=== PATIENT | male | born 1995 | race Caucasian/White ===

== ENCOUNTER 2017-11-16 18:19 | Emergency (ER) | payer OTHER ==
[~2017-11-16] VITALS: Ht 182.9 cm; Wt 72.6 kg
[~2017-11-16 18:19] MED LIST: CRUTCH4 USE; DIVA250EC PO; DIVA500EC PO; IBUP400 PO; IBUP600 PO; INSLIS75I; LEVE500 PO; LORA.5 PO; PROM25 PO; RANI150 PO; RXLORA1 PO; RXONDA4ODT MM; Zofran4 MG PO; [UNRECOGNIZED DRUG - REMARK]; [UNRECOGNIZED DRUG - REMARK]
[2017-11-16] MEDS ORDERED: Norco 5-325 Ta1 EACH PO (19:19)
[2017-11-16] MEDS ORDERED: NAPR550 PO (19:19)
== END 2017-11-16 19:31 | disposition home or self-care (01) ==
LOC: ER 18:19
DX: M94.0 Chondrocostal junction syndrome [Tietze] (principal)
CPT/HCPCS: 71046; 93005; 93010; 96374; 99283; J1885

== ENCOUNTER 2017-12-14 23:11 | Emergency (ER) | payer OTHER ==
[~2017-12-14] VITALS: Ht 182.9 cm; Wt 75.8 kg
[~2017-12-14 23:11] MED LIST changes: +NAPR550 PO; +Norco 5-325 Ta1 EACH PO
[2017-12-15 00:30] LABS: BASOPHILS ABSOLUTE AUTO 0.04 K/mm3 (0.00-0.23); BASOPHILS PERCENT AUTO 0 % (0-2); EOSINOPHILS ABSOLUTE AUTO 0.05 K/mm3 (0.00-0.68); EOSINOPHILS PERCENT AUTO 1 % (0-6); Hematocrit 44.6 % (37.0-53.0); Hemoglobin 14.8 g/dL (13.5-17.5); IMMATURE GRAN ABSOLUTE AUTO 0.03 K/mm3 (0.00-0.10); IMMATURE GRAN PERCENT AUTO 0 % (0-1); LYMPHOCYTES ABSOLUTE AUTO 1.38 K/mm3 (0.84-5.20); LYMPHOCYTES PERCENT AUTO 15 % (21-46); MONOCYTES ABSOLUTE AUTO 0.92 K/mm3 (0.16-1.47); MONOCYTES PERCENT AUTO 10 % (4-13); Mean Corpuscular HGB 27.9 pg (26.0-34.0); Mean Corpuscular HGB Conc 33.2 g/dL (31.5-36.5); Mean Corpuscular Volume 84 fL (80-100); Mean Platelet Volume 10.5 fL (9.1-12.4); NEUTROPHILS ABSOLUTE AUTO 6.74 K/mm3 (1.96-9.15); NEUTROPHILS PERCENT AUTO 74 % (41-73); Platelet Count 193 K/mm3 (150-400); RDW Coefficient Variation 13.2 % (11.7-14.2); RDW Standard Deviation 40.1 fL (35.1-46.3); Red Blood Cell Count 5.31 M/mm3 (4.30-5.90); White Blood Cell Count 9.16 K/mm3 (4.00-11.30)
[2017-12-15 00:51] LABS: Alanine Aminotransfer (ALT/SGP 31 U/L (12-78); Albumin, Blood 3.8 g/dL (3.4-5.0); Albumin/Globulin Ratio 1.1 (0.8-1.8); Alk Phos 74 U/L (50-136); Anion Gap 9 mmol/L (6-16); Aspartate Aminotrans (AST/SGOT 16 U/L (12-37); Bilirubin, Total 0.4 mg/dL (0.1-1.0); Blood Urea Nitrogen 18 mg/dL (8-24); Bun/Creatinine Ratio 20.1 (12.0-20.0); CO2, Blood 25 mmol/L (21-32); Calcium, Blood 8.6 mg/dL (8.5-10.1); Chloride, Blood 105 mmol/L (98-108); Creatinine, Blood 0.89 mg/dL (0.60-1.20); Globulin, Blood 3.4 g/dL (2.2-4.0); Glomerular Filtration Rate >60 (60-); Glucose, Blood 112 mg/dL (70-99); Potassium, Blood 3.5 mmol/L (3.5-5.5); Sodium, Blood 139 mmol/L (136-145); Total Protein, Blood 7.2 g/dL (6.4-8.2); Troponin I <0.015 ng/mL (0.000-0.040)
[2017-12-15] MEDS ORDERED: Zofran Odt4 MG PO (01:03)
[2017-12-15] MEDS ORDERED: Naprosyn500 MG PO (01:03)
== END 2017-12-15 01:15 | disposition home or self-care (01) ==
LOC: ER 23:11
PROVIDERS: Emergency Medicine
DX: M94.0 Chondrocostal junction syndrome [Tietze] (principal); I95.1 Orthostatic hypotension; F17.220 Nicotine dependence, chewing tobacco, uncomplicated
CPT/HCPCS: 36415; 71046; 80053; 84484; 85025; 93005; 93010; 96374; 96375; 99284; J1885; J2405; J3010

== ENCOUNTER 2019-01-09 20:15 | Emergency (ER) | payer MEDICAID ==
[~2019-01-09] VITALS: Ht 182.9 cm; Wt 76.2 kg
[~2019-01-09 20:15] MED LIST changes: +Naprosyn500 MG PO; +Zofran Odt4 MG PO
[2019-01-09 20:50] LABS: BASOPHILS ABSOLUTE AUTO 0.03 K/mm3 (0.00-0.23); BASOPHILS PERCENT AUTO 0 % (0-2); EOSINOPHILS ABSOLUTE AUTO 0.15 K/mm3 (0.00-0.68); EOSINOPHILS PERCENT AUTO 2 % (0-6); Hematocrit 48.5 % (37.0-53.0); IMMATURE GRAN ABSOLUTE AUTO 0.02 K/mm3 (0.00-0.10); IMMATURE GRAN PERCENT AUTO 0 % (0-1); LYMPHOCYTES ABSOLUTE AUTO 1.69 K/mm3 (0.84-5.20); LYMPHOCYTES PERCENT AUTO 22 % (21-46); MONOCYTES ABSOLUTE AUTO 0.91 K/mm3 (0.16-1.47); MONOCYTES PERCENT AUTO 12 % (4-13); Mean Corpuscular HGB 29.6 pg (26.0-34.0); Mean Corpuscular Volume 90 fL (80-100); Mean Platelet Volume 10.1 fL (9.1-12.4); NEUTROPHILS ABSOLUTE AUTO 5.05 K/mm3 (1.96-9.15); NEUTROPHILS PERCENT AUTO 64 % (41-73); Platelet Count 179 K/mm3 (150-400); RDW Coefficient Variation 12.8 % (11.7-14.2); White Blood Cell Count 7.85 K/mm3 (4.00-11.30)
[2019-01-09 21:17] LABS: Alanine Aminotransfer (ALT/SGP 20 U/L (12-78); Albumin, Blood 3.6 g/dL (3.4-5.0); Albumin/Globulin Ratio 1.2 (0.8-1.8); Alk Phos 82 U/L (50-136); Anion Gap 6 mmol/L (6-16); Aspartate Aminotrans (AST/SGOT 20 U/L (12-37); Bilirubin, Total 0.4 mg/dL (0.1-1.0); Blood Urea Nitrogen 18 mg/dL (8-24); Bun/Creatinine Ratio 22.2 (12.0-20.0); CO2, Blood 26 mmol/L (21-32); Chloride, Blood 107 mmol/L (98-108); Creatinine, Blood 0.81 mg/dL (0.60-1.20); Glomerular Filtration Rate >60 (60-); Glucose, Blood 90 mg/dL (70-99); Potassium, Blood 3.7 mmol/L (3.5-5.5); Sodium, Blood 139 mmol/L (136-145); Total Protein, Blood 6.6 g/dL (6.4-8.2)
[2019-01-09 21:18] LABS: Source, Urine Clean Catch
[2019-01-09 21:20] LABS: Bilirubin, Urine Neg (Neg); Blood, Urine Neg (Neg); Glucose Qualitative, Urine Neg (Neg); Ketones, Urine Neg (Neg); Leukocyte Esterase, Urine Neg (Neg); Nitrite, Urine Neg (Neg); Protein, Urine Neg (Neg); Urobilinogen, Urine 1+ (Normal)
[2019-01-09 21:23] LABS: Appearance, Urine Clear (Clear); Color, Urine Yellow (P-Yellow)
[2019-01-10] MEDS ORDERED: ONDA4ODT MM (00:50)
== END 2019-01-10 01:12 | disposition home or self-care (01) ==
LOC: ER 20:15
PROVIDERS: Emergency Medicine
DX: K52.9 Noninfective gastroenteritis and colitis, unspecified (principal)
CPT/HCPCS: 36415; 74177; 80053; 81003; 83690; 85025; 96361; 96374-59; 99284-25; A9270-GY; J2405; J7030; Q9967

== ENCOUNTER 2019-02-09 23:29 | Emergency (ER) | payer OTHER ==
[~2019-02-09] VITALS: Ht 180.3 cm; Wt 72.6 kg
[~2019-02-09 23:29] MED LIST changes: +ONDA4ODT MM; +PRAZ1 PO
== END 2019-02-10 02:12 | disposition home or self-care (01) ==
LOC: ER 23:29
DX: S16.1XXA Strain of muscle, fascia and tendon at neck level, initial encounter (principal); V89.2XXA Person injured in unspecified motor-vehicle accident, traffic, initial encounter; Z79.899 Other long term (current) drug therapy; F17.220 Nicotine dependence, chewing tobacco, uncomplicated
CPT/HCPCS: 72125; 99284-25

== ENCOUNTER 2021-02-17 23:07 | Emergency (ER) | payer OTHER ==
[~2021-02-17] VITALS: Ht 172.7 cm; Wt 74.8 kg
== END 2021-02-18 00:40 | disposition home or self-care (01) ==
LOC: ER 23:07
DX: S00.03XA Contusion of scalp, initial encounter (principal); F17.220 Nicotine dependence, chewing tobacco, uncomplicated; Z79.899 Other long term (current) drug therapy
CPT/HCPCS: 70450; 72125; 96374; 99284-25; A9270; J3010

== ENCOUNTER 2021-05-14 15:43 | Emergency (ER) | payer BC, OTHER ==
[~2021-05-14] VITALS: Ht 182.9 cm; Wt 83.9 kg
[2021-05-14] MEDS ORDERED: SERT100 PO (16:06)
[2021-05-14] MEDS ORDERED: POTA10T PO (16:06)
[2021-05-14 16:19] LABS: BASOPHILS ABSOLUTE AUTO 0.02 K/mm3 (0.00-0.23); BASOPHILS PERCENT AUTO 0 % (0-2); EOSINOPHILS ABSOLUTE AUTO 0.08 K/mm3 (0.00-0.68); EOSINOPHILS PERCENT AUTO 2 % (0-6); Hematocrit 48.7 % (37.0-53.0); Hemoglobin 16.9 g/dL (13.5-17.5); IMMATURE GRAN PERCENT AUTO 0 % (0-1); LYMPHOCYTES ABSOLUTE AUTO 1.45 K/mm3 (0.84-5.20); LYMPHOCYTES PERCENT AUTO 30 % (21-46); MONOCYTES ABSOLUTE AUTO 0.49 K/mm3 (0.16-1.47); MONOCYTES PERCENT AUTO 10 % (4-13); Mean Corpuscular HGB 29.5 pg (26.0-34.0); Mean Corpuscular HGB Conc 34.7 g/dL (31.5-36.5); Mean Corpuscular Volume 85 fL (80-100); Mean Platelet Volume 11.4 fL (9.1-12.4); NEUTROPHILS ABSOLUTE AUTO 2.84 K/mm3 (1.96-9.15); NEUTROPHILS PERCENT AUTO 58 % (41-73); Platelet Count 197 K/mm3 (150-400); RDW Coefficient Variation 11.8 % (11.7-14.2); RDW Standard Deviation 36.2 fL (35.1-46.3); Red Blood Cell Count 5.72 M/mm3 (4.30-5.90); White Blood Cell Count 4.88 K/mm3 (4.00-11.30)
[2021-05-14 16:32] LABS: Anion Gap 6 mmol/L (6-16); Blood Urea Nitrogen 16 mg/dL (8-24); Bun/Creatinine Ratio 15.4 (12.0-20.0); CO2, Blood 26 mmol/L (21-32); Calcium, Blood 9.3 mg/dL (8.5-10.1); Chloride, Blood 106 mmol/L (98-108); Creatinine, Blood 1.04 mg/dL (0.60-1.20); Glomerular Filtration Rate >60 (60-); Glucose, Blood 89 mg/dL (70-99); Potassium, Blood 3.9 mmol/L (3.5-5.5); Sodium, Blood 138 mmol/L (136-145); Troponin I <0.015 ng/mL (0.000-0.040)
== END 2021-05-14 16:59 | disposition home or self-care (01) ==
LOC: ER 15:43
PROVIDERS: Student in an Organized Health Care Education/Training Program
DX: T50.3X1A Poisoning by electrolytic, caloric and water-balance agents, accidental (unintentional), initial encounter (principal)
CPT/HCPCS: 80048; 84484; 85025; 93005; 93010; 99284-25

== ENCOUNTER 2021-08-03 23:25 | Emergency (ER) | payer OTHER, BC ==
[~2021-08-03] VITALS: Ht 182.9 cm; Wt 86.2 kg
[~2021-08-03 23:25] MED LIST changes: +POTA10T PO; +SERT100 PO
== END 2021-08-04 05:31 | disposition home or self-care (01) ==
LOC: ER 23:25
DX: S83.92XA Sprain of unspecified site of left knee, initial encounter (principal); F17.220 Nicotine dependence, chewing tobacco, uncomplicated; X50.1XXA Overexertion from prolonged static or awkward postures, initial encounter
CPT/HCPCS: 73562-LT; 99283-25; A9270

== ENCOUNTER 2021-11-09 01:25 | Emergency (ER) | payer BC, OTHER ==
[~2021-11-09] VITALS: Ht 182.9 cm; Wt 90.7 kg
[2021-11-09 02:03] LABS: Alanine Aminotransfer (ALT/SGP 34 U/L (12-78); Albumin/Globulin Ratio 1.1 (0.8-1.8); Alk Phos 85 U/L (50-136); Anion Gap 7 mmol/L (6-16); Aspartate Aminotrans (AST/SGOT 19 U/L (12-37); Bilirubin, Total 0.5 mg/dL (0.1-1.0); Blood Urea Nitrogen 17 mg/dL (8-24); Bun/Creatinine Ratio 17.3 (12.0-20.0); CO2, Blood 27 mmol/L (21-32); Calcium, Blood 8.8 mg/dL (8.5-10.1); Chloride, Blood 105 mmol/L (98-108); Creatinine, Blood 0.98 mg/dL (0.60-1.20); Globulin, Blood 3.6 g/dL (2.2-4.0); Glomerular Filtration Rate >60 (60-); Glucose, Blood 105 mg/dL (70-99); Potassium, Blood 3.3 mmol/L (3.5-5.5); Sodium, Blood 139 mmol/L (136-145); Total Protein, Blood 7.6 g/dL (6.4-8.2)
[2021-11-09 02:14] LABS: BASOPHILS ABSOLUTE AUTO 0.04 K/mm3 (0.00-0.23); BASOPHILS PERCENT AUTO 0 % (0-2); EOSINOPHILS ABSOLUTE AUTO 0.19 K/mm3 (0.00-0.68); EOSINOPHILS PERCENT AUTO 2 % (0-6); Hematocrit 49.3 % (37.0-53.0); Hemoglobin 16.5 g/dL (13.5-17.5); IMMATURE GRAN ABSOLUTE AUTO 0.03 K/mm3 (0.00-0.10); IMMATURE GRAN PERCENT AUTO 0 % (0-1); LYMPHOCYTES ABSOLUTE AUTO 3.25 K/mm3 (0.84-5.20); LYMPHOCYTES PERCENT AUTO 35 % (21-46); MONOCYTES ABSOLUTE AUTO 0.79 K/mm3 (0.16-1.47); MONOCYTES PERCENT AUTO 9 % (4-13); Mean Corpuscular HGB 28.9 pg (26.0-34.0); Mean Corpuscular HGB Conc 33.5 g/dL (31.5-36.5); Mean Corpuscular Volume 87 fL (80-100); Mean Platelet Volume 10.9 fL (9.1-12.4); NEUTROPHILS ABSOLUTE AUTO 4.96 K/mm3 (1.96-9.15); NEUTROPHILS PERCENT AUTO 54 % (41-73); Platelet Count 315 K/mm3 (150-400); RDW Coefficient Variation 12.1 % (11.7-14.2); RDW Standard Deviation 38.5 fL (35.1-46.3); White Blood Cell Count 9.26 K/mm3 (4.00-11.30)
[2021-11-09 03:44] LABS: Influenza B, PCR NEGATIVE (NEGATIVE); Resp Syncytial Virus, PCR NEGATIVE (NEGATIVE); SARS-Cov-2 (COVID-19) PCR, MMC NEGATIVE (NEGATIVE)
[2021-11-09 03:54] LABS: Influenza A, PCR POSITIVE (NEGATIVE)
== END 2021-11-09 04:15 | disposition home or self-care (01) ==
LOC: ER 01:25
PROVIDERS: Emergency Medicine
DX: J10.1 Influenza due to other identified influenza virus with other respiratory manifestations (principal); F17.220 Nicotine dependence, chewing tobacco, uncomplicated; Z20.822 Contact with and (suspected) exposure to COVID-19
CPT/HCPCS: 0241U; 71045; 80053; 84484; 85025; 93005; 93010

== ENCOUNTER → 2022-03-07 | Outpatient (CLI) | payer BC | LOC: LAB SHORT 12:25 → LAB 12:25 | DX: J02.9 Acute pharyngitis, unspecified (principal) | CPT/HCPCS: 87081 ==

== ENCOUNTER → 2023-03-12 | Outpatient (CLI) | payer OTHER ==
[~2023-03-12] MED LIST changes: +EPIPEN0.3 MG/0.3 IM
[2023-03-12 13:28] LABS: Source, Urine Voided
[2023-03-12 15:47] LABS: Appearance, Urine Clear (Clear); Bilirubin, Urine Neg (Neg); Blood, Urine 1+ (Neg); Color, Urine Yellow (P-Yellow); Glucose Qualitative, Urine Neg (Neg); Ketones, Urine Neg (Neg); Leukocyte Esterase, Urine Neg (Neg); Nitrite, Urine Neg (Neg); Protein, Urine Neg (Neg); Urobilinogen, Urine NORM (Normal)
[2023-03-12 15:57] LABS: Bacteria Few /hpf; Squamous Epithelial Cells Rare /hpf (Few); White Blood Cells, Urine 0-2 /hpf (0-5)
== END | disposition home or self-care (01) ==
LOC: LAB 10:30 → LAB SHORT 10:30
PROVIDERS: Physician Assistant
DX: R10.9 Unspecified abdominal pain (principal); R31.29 Other microscopic hematuria
CPT/HCPCS: 81001

== ENCOUNTER 2023-07-10 01:48 | Emergency (ER) | payer OTHER ==
[~2023-07-10] VITALS: Ht 182.9 cm; Wt 83.9 kg
[2023-07-10] MEDS ORDERED: Cyclobenzaprine5 MG PO (02:00)
[2023-07-10 02:21] LABS: BASOPHILS ABSOLUTE AUTO 0.05 K/mm3 (0.00-0.23); BASOPHILS PERCENT AUTO 1 % (0-2); EOSINOPHILS ABSOLUTE AUTO 0.19 K/mm3 (0.00-0.68); EOSINOPHILS PERCENT AUTO 2 % (0-6); Hematocrit 47.3 % (37.0-53.0); Hemoglobin 16.4 g/dL (13.5-17.5); IMMATURE GRAN ABSOLUTE AUTO 0.03 K/mm3 (0.00-0.10); IMMATURE GRAN PERCENT AUTO 0 % (0-1); LYMPHOCYTES ABSOLUTE AUTO 3.48 K/mm3 (0.84-5.20); LYMPHOCYTES PERCENT AUTO 42 % (21-46); MONOCYTES PERCENT AUTO 8 % (4-13); Mean Corpuscular HGB 29.2 pg (26.0-34.0); Mean Corpuscular HGB Conc 34.7 g/dL (31.5-36.5); Mean Corpuscular Volume 84 fL (80-100); Mean Platelet Volume 10.8 fL (9.1-12.4); NEUTROPHILS ABSOLUTE AUTO 3.94 K/mm3 (1.96-9.15); NEUTROPHILS PERCENT AUTO 47 % (41-73); Platelet Count 227 K/mm3 (150-400); RDW Coefficient Variation 12.2 % (11.7-14.2); RDW Standard Deviation 37.1 fL (35.1-46.3); Red Blood Cell Count 5.62 M/mm3 (4.30-5.90); White Blood Cell Count 8.39 K/mm3 (4.00-11.30)
[2023-07-10 02:33] LABS: Albumin, Blood 4.2 g/dL (3.4-5.0); Albumin/Globulin Ratio 1.3 (0.8-1.8); Bilirubin, Total 0.4 mg/dL (0.1-1.0); Bun/Creatinine Ratio 17.5 (12.0-20.0); Creatinine, Blood 1.03 mg/dL (0.60-1.20); Globulin, Blood 3.2 g/dL (2.2-4.0); Total Protein, Blood 7.4 g/dL (6.4-8.2)
[2023-07-10 03:29] LABS: U Amphetamine Screen Not Detected; U Barbituate Screen Not Detected; U Benzodiazapine Screen Not Detected; U Buprenorphine Screen Not Detected; U Cannabinoids Screen Not Detected; U Cocaine Screen Not Detected; U Methadone Screen Not Detected; U Methamphetamine Screen Not Detected; U Opiates Screen Not Detected; U Oxycodone Screen Not Detected; U Phencyclidine Screen Not Detected; U Propoxyphene Screen Not Detected
[2023-07-10] MEDS ORDERED: MIDAZOLAM H (06:34)
[2023-07-10 08:11] VITALS: BP 116/71
== END 2023-07-10 08:13 | disposition home or self-care (01) ==
LOC: ER 01:48
PROVIDERS: Emergency Medicine
DX: T50.901A Poisoning by unspecified drugs, medicaments and biological substances, accidental (unintentional), initial encounter (principal); E86.0 Dehydration; G40.909 Epilepsy, unspecified, not intractable, without status epilepticus; Z91.030 Bee allergy status; Z79.899 Other long term (current) drug therapy; F17.220 Nicotine dependence, chewing tobacco, uncomplicated
CPT/HCPCS: 80053; 85025; 93005; 93010; 96365; 96366; 96375; 96376; 99284-25; A9270; J1953; J2060; J2405; J3480; J7120

== ENCOUNTER 2023-11-03 00:58 | Emergency (ER) | payer OTHER ==
[~2023-11-03] VITALS: Ht 188 cm; Wt 99.8 kg
[~2023-11-03 00:58] MED LIST changes: +Cyclobenzaprine5 MG PO; +MIDAZOLAM H
[2023-11-03 01:16] LABS: BASOPHILS ABSOLUTE AUTO 0.04 K/mm3 (0.00-0.23); BASOPHILS PERCENT AUTO 1 % (0-2); EOSINOPHILS PERCENT AUTO 3 % (0-6); Hematocrit 45.5 % (37.0-53.0); Hemoglobin 15.8 g/dL (13.5-17.5); IMMATURE GRAN ABSOLUTE AUTO 0.01 K/mm3 (0.00-0.10); IMMATURE GRAN PERCENT AUTO 0 % (0-1); LYMPHOCYTES ABSOLUTE AUTO 2.75 K/mm3 (0.84-5.20); LYMPHOCYTES PERCENT AUTO 44 % (21-46); MONOCYTES ABSOLUTE AUTO 0.52 K/mm3 (0.16-1.47); MONOCYTES PERCENT AUTO 8 % (4-13); Mean Corpuscular HGB 29.8 pg (26.0-34.0); Mean Corpuscular HGB Conc 34.7 g/dL (31.5-36.5); Mean Corpuscular Volume 86 fL (80-100); Mean Platelet Volume 10.1 fL (9.1-12.4); NEUTROPHILS ABSOLUTE AUTO 2.68 K/mm3 (1.96-9.15); NEUTROPHILS PERCENT AUTO 43 % (41-73); Platelet Count 225 K/mm3 (150-400); RDW Coefficient Variation 12.3 % (11.7-14.2); RDW Standard Deviation 38.4 fL (35.1-46.3); Red Blood Cell Count 5.31 M/mm3 (4.30-5.90)
[2023-11-03 01:24] LABS: Base Excess Venous -0.8 mmol/L; Bicarbonate Venous 23.8 mmol/L (24.0-30.0); PCO2 Venous 23.8 mmHg (38-42); pH Blood Venous 7.39 (7.34-7.37)
[2023-11-03 01:44] LABS: Albumin, Blood 3.8 g/dL (3.4-5.0); Albumin/Globulin Ratio 1.2 (0.8-1.8); Beta-hydroxybutyrate 0.9 mg/dL (0.2-2.8); Bilirubin, Total 0.5 mg/dL (0.1-1.0); Bun/Creatinine Ratio 24.9 (12.0-20.0); Calcium, Blood 8.7 mg/dL (8.5-10.1); Creatinine, Blood 0.96 mg/dL (0.60-1.20); Globulin, Blood 3.1 g/dL (2.2-4.0); Potassium, Blood 3.8 mmol/L (3.5-5.5); Total Protein, Blood 6.9 g/dL (6.4-8.2)
[2023-11-03 02:19] VITALS: BP 120/79
== END 2023-11-03 02:14 | disposition home or self-care (01) ==
LOC: ER 00:58
PROVIDERS: Emergency Medicine
DX: Z00.00 Encounter for general adult medical examination without abnormal findings (principal); F17.220 Nicotine dependence, chewing tobacco, uncomplicated; I25.2 Old myocardial infarction; Z79.899 Other long term (current) drug therapy; Z91.030 Bee allergy status
CPT/HCPCS: 71045; 80053; 82010; 82803; 82947; 84484; 85025; 93005; 93010; 99285-25

== ENCOUNTER 2024-04-04 23:32 | Emergency (ER) | payer OTHER ==
[~2024-04-04] VITALS: Ht 188 cm; Wt 95.2 kg
[2024-04-05 00:30] VITALS: BP 114/74
[2024-04-05] MEDS ORDERED: EPINEPHRIN0.3 MG/0.1 (01:53)
[2024-04-05] MEDS ORDERED: Ventolin5 MG/1 ML (01:53)
[2024-04-05] MEDS ORDERED: EPIPEN0.3 MG/0.3 IM (02:02)
[2024-04-05] MEDS ORDERED: Diphth,Pertuss(Acell),Tet Vac 0.5 ML VIAL IM ONE (02:05)
== END 2024-04-05 02:23 | disposition home or self-care (01) ==
LOC: ER 23:32
DX: T63.441A Toxic effect of venom of bees, accidental (unintentional), initial encounter (principal); T78.2XXA Anaphylactic shock, unspecified, initial encounter; Z91.030 Bee allergy status; Z79.899 Other long term (current) drug therapy; I25.2 Old myocardial infarction; F17.220 Nicotine dependence, chewing tobacco, uncomplicated
CPT/HCPCS: 90471; 90715; 99285-25

== ENCOUNTER 2024-08-07 11:51 | Observation (INO) | payer BC, OTHER ==
[~2024-08-07] VITALS: Ht 182.9 cm; Wt 92.1 kg
[~2024-08-07 11:51] MED LIST changes: +EPINEPHRIN0.3 MG/0.1; +Ventolin5 MG/1 ML
[2024-08-07 12:27] LABS: BASOPHILS ABSOLUTE AUTO 0.03 K/mm3 (0.00-0.23); BASOPHILS PERCENT AUTO 1 % (0-2); EOSINOPHILS ABSOLUTE AUTO 0.08 K/mm3 (0.00-0.68); EOSINOPHILS PERCENT AUTO 1 % (0-6); Hematocrit 48.3 % (37.0-53.0); Hemoglobin 16.6 g/dL (13.5-17.5); IMMATURE GRAN ABSOLUTE AUTO 0.01 K/mm3 (0.00-0.10); IMMATURE GRAN PERCENT AUTO 0 % (0-1); LYMPHOCYTES ABSOLUTE AUTO 1.02 K/mm3 (0.84-5.20); LYMPHOCYTES PERCENT AUTO 17 % (21-46); MONOCYTES PERCENT AUTO 8 % (4-13); Mean Corpuscular HGB 29.9 pg (26.0-34.0); Mean Corpuscular HGB Conc 34.4 g/dL (31.5-36.5); Mean Corpuscular Volume 87 fL (80-100); Mean Platelet Volume 10.8 fL (9.1-12.4); NEUTROPHILS ABSOLUTE AUTO 4.48 K/mm3 (1.96-9.15); NEUTROPHILS PERCENT AUTO 73 % (41-73); Platelet Count 198 K/mm3 (150-400); RDW Coefficient Variation 12.4 % (11.7-14.2); RDW Standard Deviation 39.8 fL (35.1-46.3); Red Blood Cell Count 5.56 M/mm3 (4.30-5.90); White Blood Cell Count 6.12 K/mm3 (4.00-11.30)
[2024-08-07 12:46] LABS: Ethanol (Alcohol), Blood, Med <3 mg/dL; Salicylate <1.7 mg/dL (2.8-20.0)
[2024-08-07 12:53] LABS: Acetaminophen, Random <2.0 ug/mL (10.0-30.0); Alanine Aminotransfer (ALT/SGP 27 U/L (12-78); Albumin, Blood 4.2 g/dL (3.4-5.0); Albumin/Globulin Ratio 1.4 (0.8-1.8); Alk Phos 78 U/L (50-136); Anion Gap 10 mmol/L (3-11); Aspartate Aminotrans (AST/SGOT 19 U/L (12-37); Bilirubin, Total 0.7 mg/dL (0.1-1.0); Blood Urea Nitrogen 19 mg/dL (8-24); Bun/Creatinine Ratio 19.6 (12.0-20.0); CO2, Blood 27 mmol/L (21-32); Calcium, Blood 8.9 mg/dL (8.5-10.1); Chloride, Blood 108 mmol/L (98-108); Creatinine, Blood 0.97 mg/dL (0.60-1.20); Globulin, Blood 3.1 g/dL (2.2-4.0); Glomerular Filtration Rate 110 (60-); Glucose, Blood 104 mg/dL (70-99); Potassium, Blood 3.8 mmol/L (3.5-5.5); Sodium, Blood 141 mmol/L (136-145); Total Protein, Blood 7.3 g/dL (6.4-8.2)
[2024-08-07] MEDS ORDERED: Ondansetron 4 MG SoluTab SL ONE (12:55)
[2024-08-07 13:07] LABS: U Amphetamine Screen Not Detected; U Barbituate Screen Not Detected; U Benzodiazapine Screen Not Detected; U Buprenorphine Screen Not Detected; U Cannabinoids Screen Not Detected; U Cocaine Screen Not Detected; U Methadone Screen Not Detected; U Methamphetamine Screen Not Detected; U Opiates Screen Not Detected; U Oxycodone Screen Not Detected; U Phencyclidine Screen Not Detected
[2024-08-08 11:11] VITALS: BP 110/62
== END 2024-08-08 14:30 | disposition other institution (70) ==
LOC: ER 11:51 → EOR 11:52
PROVIDERS: ADMIT Emergency Medicine
DX: T48.1X2A Poisoning by skeletal muscle relaxants [neuromuscular blocking agents], intentional self-harm, initial encounter (principal); I25.2 Old myocardial infarction; Z72.0 Tobacco use; Z88.8 Allergy status to other drugs, medicaments and biological substances; Z91.030 Bee allergy status; Z91.038 Other insect allergy status
CPT/HCPCS: 80053; 80320; 85025; 93005; 93010; 99285-25; A9270; G0378; G0480

== ENCOUNTER 2024-08-08 13:34 | Inpatient (IN) | payer BC, OTHER ==
[~2024-08-08] VITALS: Ht 185.4 cm; Wt 92.0 kg
[2024-08-08] MEDS ORDERED: OLANZapine ODT 5 MG Tab MM PRN (14:40)
[2024-08-08] MEDS ORDERED: LORazepam 2 MG Tab PO PRN (14:40)
[2024-08-08] MEDS ORDERED: HydrOXYzine Pamoate 50 MG Cap PO PRN (14:40)
[2024-08-08] MEDS ORDERED: Haloperidol 5 MG Tab PO PRN (14:40)
[2024-08-08] MEDS ORDERED: TraZODone HCl 50 MG Tab PO PRN (14:40)
[2024-08-08] MEDS ORDERED: FLU VACC TS2024-25(6MOS UP)/PF 45 MCG/0.5 ML SYRINGE IM SCH (14:40)
[2024-08-08 14:45] VITALS: BP 121/82
[2024-08-08] MEDS ORDERED: EpiNEPhrine 1 MG/1 ML 1ML Vial IM PRN (14:45)
[2024-08-08] MEDS ORDERED: Albuterol 2.5 MG/3 ML VIAL INH PRN (14:50)
[2024-08-08 15:01] VITALS: BP 121/82
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
[2024-08-08 19:01] VITALS: BP 120/77
--- NOTE | 2024-08-09 05:09 | NUR ---
PATIENT WAS IN GROUP ROOM WITH PEERS AND STAFF AT THE BEGINNING OF THE SHIFT, WATCHING A MOVIE ON THE TELEVISION. HE WAS PLEASANT AND COOPERATIVE WITH CARES. HE JOINED THE OTHERS IN THE DINING ROOM FOR SNACK TIME. HE REQUESTED AND WAS GIVEN TRAZODONE FOR INSOMNIA, AND WENT TO HIS ROOM, WHERE HE WENT TO BED AND WAS NOTED TO BE RESTING QUIETLY WITH EYES CLOSED AND RESPIRATIONS CONFIRMED FOR THE REMAINDER OF THE SHIFT. HE HAD NO S/SX SUICIDAL IDEATION OR SELF HARM. CONTINUING TO MONITOR WITH Q15 MINUTE SAFETY CHECKS
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
[2024-08-09] MEDS ORDERED: BusPIRone HCl 5 MG Tab PO SCH (21:00)
[2024-08-09 22:02] VITALS: BP 106/71
--- NOTE | 2024-08-10 03:44 | NUR ---
PATIENT WAS IN THE [facility] AT THE BEGINNING OF THE SHIFT, INTERACTING WITH STAFF AND PEERS APPROPRIATELY. HE WAS PLEASANT AND COOPERATIVE WITH CARES. HE WAS COMPLIANT WITH EVENING MEDICATIONS AND STATED THAT HE FELT BUSPAR "IS A GOOD MEDICATION FOR ME. i CAN FEEL IT LESSENING THE ANXIETY WITHOUT GIVING ME WEIRD FEELINGS." HE JOINED THE [facility] FOR SNACK TIME IN THE DINING AREA. SHORTLY AFTER, HE WENT TO HIS ROOM AND WAS NOTED TO BE IN BED RESTING QUIETLY WITH EYES CLOSED AND RESPIRATIONS CONFIRMED. HE HAD NO S/SX SUICIDAL IDEATION OR SELF HARM THIS SHIFT. CONTINUING TO MONITOR WITH Q15 MINUTE SAFETY CHECKS.
[2024-08-10] MEDS ORDERED: Nicotine Polacrilex 2 MG Gum PO PRN (17:45)
--- NOTE | 2024-08-10 18:12 | NUR ---
SHIFT SUMMARY PT A/O X4; PLEASANT AND COOPERATIVE WITH CARE. HE DENIES SI, HI, OR ANY HALLUCINATIONS. HE IS TOLERATING MEDICATIONS AND OVERALL SEEMS TO BE DOING WELL. HE IS HOPEFUL TO DISCHARGE TOMORROW AND FEELS THAT HE IS READY. HE REPORTS THAT HE CURRENTLY HAS A THERAPIST AND GOES TO THERAPY EVERY SUNDAY AND SUNDAY. EDUCATED PT ON HOLD PROCESS AND HE EXPRESSED UNDERSTANDING. HE PARTICIPATES IN ALL [facility] ACTIVITIES AND IS MONITORED VIA Q15 CHECKS PER UNIT PROTOCOL.
[2024-08-10 18:48] VITALS: BP 108/54
[2024-08-10 19:51] VITALS: BP 125/86
--- NOTE | 2024-08-11 04:29 | NUR ---
PATIENT WAS IN THE GROUP ROOM WITH STAFF AND PEERS AT THE BEGINNING OF THE SHIFT, WATCHING A MOVIE. HE WAS PLEASANT AND COOPERATIVE WITH CARES. HE WAS ABLE TO MAKE NEEDS KNOWN. HE TALKED WITH STAFF AND SHOWED INSIGHT INTO HIS ILLNESS. HE HAS PLANS AND GOALS FOR THE FUTURE. HE WAS COMPLIANT WITH EVENING MEDICATIONS. HE WENT TO THE DINING ROOM WITH STAFF AND PEERS FOR A SNACK, AND THEN CAME BACK TO THE GROUP ROOM TO FINISH THE MOVIE. HE THEN TALKED WITH STAFF FOR A TIME. HE WENT TO BED AFTER TALKING WITH [employer] STAFF FOR SOME TIME. HE WAS NOTED TO BE RESTING QUIETLY WITH EYES CLOSED AND RESPIRATIONS CONFIRMED THROUGHOUT THE REMAINDER OF THE SHIFT. HE HAD NO S/SX SUICIDAL IDEATION OR SELF HARM. CONTINUING TO MONITOR WITH Q15 MINUTE SAFETY CHECKS.
[2024-08-11 08:45] VITALS: BP 119/79
[2024-08-11] MEDS ORDERED: BUSP5 PO (11:23)
--- NOTE | 2024-08-11 12:21 | NUR ---
DISCHARGE NOTE PT A/O X4; PLEASANT AND COOPERATIVE WITH CARE. PT DENIES SI, HI, OR ANY HALLUCINATIONS. PT MET WITH [employer] AND SAFETY PLAN COMPLETED. FOLLOW UP APPOINTMENT SCHEDULED AND DISCHARGE PAPER WORK REVIEWED WITH PATIENT. NEW MEDICATIONS FAXED TO [facility]. BELONGINGS RETURNED TO PATIENT AND HE DISCHARGED HOME WITH HIS .
== END 2024-08-11 12:25 | disposition home or self-care (01) | DRG 882 ==
LOC: BHU 13:34
PROVIDERS: ADMIT Psychiatry & Neurology Psychiatry
DX: F43.25 Adjustment disorder with mixed disturbance of emotions and conduct (principal); T48.1X2A Poisoning by skeletal muscle relaxants [neuromuscular blocking agents], intentional self-harm, initial encounter; F17.220 Nicotine dependence, chewing tobacco, uncomplicated; G40.909 Epilepsy, unspecified, not intractable, without status epilepticus; Z88.8 Allergy status to other drugs, medicaments and biological substances; Z91.030 Bee allergy status; Z91.038 Other insect allergy status; Z95.5 Presence of coronary angioplasty implant and graft; I25.2 Old myocardial infarction
CPT/HCPCS: A9270; J0171

== ENCOUNTER → 2024-08-13 | Outpatient (CLI) | payer BC, OTHER ==
[~2024-08-13] MED LIST changes: +BUSP5 PO
[2024-08-13 14:22] LABS: BASOPHILS ABSOLUTE AUTO 0.02 K/mm3 (0.00-0.23); BASOPHILS PERCENT AUTO 0 % (0-2); EOSINOPHILS ABSOLUTE AUTO 0.17 K/mm3 (0.00-0.68); EOSINOPHILS PERCENT AUTO 3 % (0-6); Hematocrit 50.2 % (37.0-53.0); Hemoglobin 17.3 g/dL (13.5-17.5); IMMATURE GRAN ABSOLUTE AUTO 0.01 K/mm3 (0.00-0.10); IMMATURE GRAN PERCENT AUTO 0 % (0-1); LYMPHOCYTES PERCENT AUTO 29 % (21-46); MONOCYTES ABSOLUTE AUTO 0.44 K/mm3 (0.16-1.47); MONOCYTES PERCENT AUTO 8 % (4-13); Mean Corpuscular HGB 29.7 pg (26.0-34.0); Mean Corpuscular HGB Conc 34.5 g/dL (31.5-36.5); Mean Corpuscular Volume 86 fL (80-100); Mean Platelet Volume 11.5 fL (9.1-12.4); NEUTROPHILS PERCENT AUTO 59 % (41-73); Platelet Count 200 K/mm3 (150-400); RDW Coefficient Variation 12.3 % (11.7-14.2); RDW Standard Deviation 38.5 fL (35.1-46.3); Red Blood Cell Count 5.82 M/mm3 (4.30-5.90); White Blood Cell Count 5.24 K/mm3 (4.00-11.30)
[2024-08-13 14:46] LABS: Alanine Aminotransfer (ALT/SGP 24 U/L (12-78); Albumin, Blood 4.2 g/dL (3.4-5.0); Albumin/Globulin Ratio 1.3 (0.8-1.8); Alk Phos 83 U/L (50-136); Anion Gap 11 mmol/L (3-11); Aspartate Aminotrans (AST/SGOT 14 U/L (12-37); Blood Urea Nitrogen 16 mg/dL (8-24); Bun/Creatinine Ratio 15.1 (12.0-20.0); CHOL/HDL RATIO 2.5; CO2, Blood 25 mmol/L (21-32); Chloride, Blood 110 mmol/L (98-108); Cholesterol 144 mg/dL (50-200); Creatinine, Blood 1.06 mg/dL (0.60-1.20); Globulin, Blood 3.3 g/dL (2.2-4.0); Glomerular Filtration Rate 99 (60-); Glucose, Blood 92 mg/dL (70-99); HDL Cholesterol 57 mg/dL (>39); LDL/HDL RATIO 1.2; Low Density Lipoprotein Chol 70 mg/dL (0-110); Potassium, Blood 3.9 mmol/L (3.5-5.5); Sodium, Blood 142 mmol/L (136-145); Total Protein, Blood 7.5 g/dL (6.4-8.2); Triglycerides 86 mg/dL (30-140); Very Low Density Lipoprot Chol 17 mg/dL (6-28)
[2024-08-15 09:53] LABS: HIV 1,2 COMBO ANTIGEN/ANTIBODY Negative (Negative)
[2024-08-15 15:56] LABS: HEPATITIS C AB CIA INTERP Negative (Negative); HEPATITIS C ANTIBODY CIA INDEX 0.13 IV
== END ==
LOC: LAB 12:59 → LAB SHORT 12:59
PROVIDERS: Family Medicine
DX: Z11.59 Encounter for screening for other viral diseases (principal); Z11.4 Encounter for screening for human immunodeficiency virus [HIV]; Z13.6 Encounter for screening for cardiovascular disorders; R45.89 Other symptoms and signs involving emotional state; Z91.51 Personal history of suicidal behavior
CPT/HCPCS: 80053; 80061; 84443; 85025; 86803; 87389

== ENCOUNTER 2024-08-31 19:36 | Emergency (ER) | payer BC, OTHER ==
[~2024-08-31] VITALS: Ht 185.4 cm; Wt 90.7 kg
[2024-08-31 20:04] LABS: BASOPHILS ABSOLUTE AUTO 0.04 K/mm3 (0.00-0.23); BASOPHILS PERCENT AUTO 0 % (0-2); EOSINOPHILS ABSOLUTE AUTO 0.05 K/mm3 (0.00-0.68); EOSINOPHILS PERCENT AUTO 1 % (0-6); Hematocrit 50.1 % (37.0-53.0); Hemoglobin 17.1 g/dL (13.5-17.5); IMMATURE GRAN ABSOLUTE AUTO 0.02 K/mm3 (0.00-0.10); IMMATURE GRAN PERCENT AUTO 0 % (0-1); LYMPHOCYTES ABSOLUTE AUTO 1.47 K/mm3 (0.84-5.20); LYMPHOCYTES PERCENT AUTO 16 % (21-46); MONOCYTES ABSOLUTE AUTO 0.62 K/mm3 (0.16-1.47); MONOCYTES PERCENT AUTO 7 % (4-13); Mean Corpuscular HGB 29.4 pg (26.0-34.0); Mean Corpuscular HGB Conc 34.1 g/dL (31.5-36.5); Mean Corpuscular Volume 86 fL (80-100); Mean Platelet Volume 10.6 fL (9.1-12.4); NEUTROPHILS ABSOLUTE AUTO 7.27 K/mm3 (1.96-9.15); NEUTROPHILS PERCENT AUTO 77 % (41-73); Platelet Count 244 K/mm3 (150-400); RDW Coefficient Variation 12.6 % (11.7-14.2); RDW Standard Deviation 39.6 fL (35.1-46.3); Red Blood Cell Count 5.82 M/mm3 (4.30-5.90); White Blood Cell Count 9.47 K/mm3 (4.00-11.30)
[2024-08-31 20:20] LABS: Albumin, Blood 4.3 g/dL (3.4-5.0); Albumin/Globulin Ratio 1.3 (0.8-1.8); Bilirubin, Total 0.7 mg/dL (0.1-1.0); Bun/Creatinine Ratio 15.5 (12.0-20.0); Calcium, Blood 9.2 mg/dL (8.5-10.1); Creatinine, Blood 1.03 mg/dL (0.60-1.20); Globulin, Blood 3.3 g/dL (2.2-4.0); Potassium, Blood 3.8 mmol/L (3.5-5.5); Total Protein, Blood 7.6 g/dL (6.4-8.2)
[2024-08-31 20:31] VITALS: BP 132/97
== END 2024-08-31 21:00 | disposition home or self-care (01) ==
LOC: ER 19:36
PROVIDERS: Emergency Medicine
DX: R07.89 Other chest pain (principal); R00.2 Palpitations; G47.00 Insomnia, unspecified; R00.0 Tachycardia, unspecified; F17.220 Nicotine dependence, chewing tobacco, uncomplicated; Z91.030 Bee allergy status; Z88.8 Allergy status to other drugs, medicaments and biological substances; F43.10 Post-traumatic stress disorder, unspecified
CPT/HCPCS: 71045; 80053; 84484; 85025; 93005; 93010; 99285-25

== ENCOUNTER 2025-08-03 00:06 | Emergency (ER) | payer BC ==
[~2025-08-03] VITALS: Ht 185.4 cm; Wt 99.8 kg
[2025-08-03 00:29] LABS: BASOPHILS ABSOLUTE AUTO 0.03 K/mm3 (0.00-0.23); BASOPHILS PERCENT AUTO 0 % (0-2); EOSINOPHILS ABSOLUTE AUTO 0.19 K/mm3 (0.00-0.68); EOSINOPHILS PERCENT AUTO 2 % (0-6); Hematocrit 46.8 % (37.0-53.0); Hemoglobin 16.2 g/dL (13.5-17.5); IMMATURE GRAN ABSOLUTE AUTO 0.02 K/mm3 (0.00-0.10); IMMATURE GRAN PERCENT AUTO 0 % (0-1); LYMPHOCYTES ABSOLUTE AUTO 3.23 K/mm3 (0.84-5.20); LYMPHOCYTES PERCENT AUTO 34 % (21-46); MONOCYTES ABSOLUTE AUTO 0.78 K/mm3 (0.16-1.47); MONOCYTES PERCENT AUTO 8 % (4-13); Mean Corpuscular HGB Conc 34.6 g/dL (31.5-36.5); Mean Corpuscular Volume 87 fL (80-100); NEUTROPHILS ABSOLUTE AUTO 5.15 K/mm3 (1.96-9.15); NEUTROPHILS PERCENT AUTO 55 % (41-73); NRBC ABSOLUTE 0.00 K/mm3 (0.00-0.02); NRBC Auto 0.0 /100 WBC (0.0-0.2); Platelet Count 229 K/mm3 (150-400); RDW Coefficient Variation 12.3 % (11.7-14.2); RDW Standard Deviation 38.9 fL (35.1-46.3)
[2025-08-03 00:49] LABS: Ethanol (Alcohol), Blood, Med 134 mg/dL; Magnesium, Blood 2.2 mg/dL (1.6-2.4); Salicylate <1.7 mg/dL (2.8-20.0)
[2025-08-03 00:50] LABS: Acetaminophen, Random <2.0 ug/mL (10.0-30.0); Alanine Aminotransfer (ALT/SGP 62 U/L (12-78); Albumin, Blood 4.4 g/dL (3.4-5.0); Albumin/Globulin Ratio 1.4 (0.8-1.8); Anion Gap 13 mmol/L (3-11); Aspartate Aminotrans (AST/SGOT 33 U/L (12-37); Bilirubin, Total 0.7 mg/dL (0.1-1.0); Blood Urea Nitrogen 19 mg/dL (8-24); CO2, Blood 22 mmol/L (21-32); Calcium, Blood 8.7 mg/dL (8.5-10.1); Chloride, Blood 106 mmol/L (98-108); Creatinine, Blood 0.98 mg/dL (0.60-1.20); Globulin, Blood 3.1 g/dL (2.2-4.0); Glucose, Blood 107 mg/dL (70-99); Potassium, Blood 3.2 mmol/L (3.5-5.5); Sodium, Blood 138 mmol/L (136-145); Total Protein, Blood 7.5 g/dL (6.4-8.2)
[2025-08-03] MEDS ORDERED: LORazepam 2 MG/ML 1ML Injection ONE (01:23)
[2025-08-03] MEDS ORDERED: LORazepam 2 MG/ML 1ML Injection IV ONE ×2 (01:30→01:45)
[2025-08-03] MEDS ORDERED: VALPROATE SODIUM IV ONE (01:45)
[2025-08-03] MEDS ORDERED: Midazolam HCL 50 MG in NS 40 ML IV PRN (01:55)
[2025-08-03] MEDS ORDERED: NS 1,000 ML IV ONE ×2 (01:56→02:58)
[2025-08-03 02:27] LABS: Source, Urine Clean Catch
[2025-08-03 02:32] LABS: Bilirubin, Urine Neg (Neg); Glucose Qualitative, Urine Neg (Neg); Ketones, Urine Neg (Neg); Leukocyte Esterase, Urine Neg (Neg); Protein, Urine 1+ (Neg); Specific Gravity, Urine 1.010 (1.003-1.022); Urobilinogen, Urine NORM (Normal)
[2025-08-03 02:34] LABS: Color, Urine Yellow (P-Yellow)
[2025-08-03 02:42] LABS: U Amphetamine Screen Not Detected; U Barbiturate Screen Not Detected; U Benzodiazapine Screen Not Detected; U Buprenorphine Screen Not Detected; U Cannabinoids Screen Not Detected; U Cocaine Screen Not Detected; U Methadone Screen Not Detected; U Methamphetamine Screen Not Detected; U Opiates Screen Not Detected; U Oxycodone Screen Not Detected; U Phencyclidine Screen Not Detected
[2025-08-03 03:00] VITALS: BP 136/83
[2025-08-03] MEDS ORDERED: NS 1,000 ML IV SCH ×2 (03:45)
[2025-08-03] MEDS ORDERED: SuccINYLCHOLINE Chloride 100 MG/5 ML 5MLSYR IV ONE (11:38)
[2025-08-03] MEDS ORDERED: Etomidate 2MG / ML 10ML Vial IV ONE (11:38)
== END 2025-08-03 03:45 | disposition short-term general hospital (02) ==
LOC: ER 00:06
PROVIDERS: Student in an Organized Health Care Education/Training Program
DX: G40.901 Epilepsy, unspecified, not intractable, with status epilepticus (principal); I25.2 Old myocardial infarction; F17.220 Nicotine dependence, chewing tobacco, uncomplicated; Z91.030 Bee allergy status; Z88.8 Allergy status to other drugs, medicaments and biological substances; Z79.899 Other long term (current) drug therapy; Z95.5 Presence of coronary angioplasty implant and graft
CPT/HCPCS: 31500; 51702; 70450; 71045; 80053; 80320; 83605; 83735; 85025; 94002; 96365; 96366; 96375; 99285-25; A9270; G0480; J0330; J2060; J2250; J2704; J3010; J7030; J7120

== ENCOUNTER 2025-09-18 18:14 | Emergency (ER) | payer BC ==
[~2025-09-18] VITALS: Ht 185.4 cm; Wt 94.3 kg
[2025-09-18 18:47] VITALS: BP 146/90
[2025-09-18] MEDS ORDERED: Ondansetron HCl 2 MG / ML 2ML Vial IV ONE ×2 (18:50→22:40)
[2025-09-18] MEDS ORDERED: Ketorolac Tromethamine 30mg Vial IV ONE (18:55)
[2025-09-18 19:07] LABS: BASOPHILS ABSOLUTE AUTO 0.04 K/mm3 (0.00-0.23); BASOPHILS PERCENT AUTO 1 % (0-2); EOSINOPHILS ABSOLUTE AUTO 0.15 K/mm3 (0.00-0.68); EOSINOPHILS PERCENT AUTO 3 % (0-6); Hematocrit 47.3 % (37.0-53.0); Hemoglobin 16.2 g/dL (13.5-17.5); IMMATURE GRAN ABSOLUTE AUTO 0.01 K/mm3 (0.00-0.10); IMMATURE GRAN PERCENT AUTO 0 % (0-1); LYMPHOCYTES ABSOLUTE AUTO 1.66 K/mm3 (0.84-5.20); LYMPHOCYTES PERCENT AUTO 30 % (21-46); MONOCYTES ABSOLUTE AUTO 0.58 K/mm3 (0.16-1.47); MONOCYTES PERCENT AUTO 10 % (4-13); Mean Corpuscular HGB Conc 34.2 g/dL (31.5-36.5); Mean Corpuscular Volume 86 fL (80-100); NEUTROPHILS ABSOLUTE AUTO 3.13 K/mm3 (1.96-9.15); NEUTROPHILS PERCENT AUTO 56 % (41-73); NRBC ABSOLUTE 0.00 K/mm3 (0.00-0.02); NRBC Auto 0.0 /100 WBC (0.0-0.2); Platelet Count 189 K/mm3 (150-400); RDW Coefficient Variation 12.0 % (11.7-14.2); RDW Standard Deviation 38.2 fL (35.1-46.3)
[2025-09-18 19:33] LABS: Alanine Aminotransfer (ALT/SGP 46.0 U/L (12-78); Albumin, Blood 4.2 g/dL (3.4-5.0); Albumin/Globulin Ratio 1.3 (0.8-1.8); Anion Gap 7.0 mmol/L (3-11); Aspartate Aminotrans (AST/SGOT 24.0 U/L (12-37); Bilirubin, Total 0.3 mg/dL (0.1-1.0); Blood Urea Nitrogen 21.0 mg/dL (8-24); CO2, Blood 27.0 mmol/L (21-32); Calcium, Blood 8.8 mg/dL (8.5-10.1); Chloride, Blood 107.0 mmol/L (98-108); Creatinine, Blood 1.04 mg/dL (0.60-1.20); Globulin, Blood 3.3 g/dL (2.2-4.0); Glucose, Blood 95.0 mg/dL (70-99); Potassium, Blood 4.0 mmol/L (3.5-5.5); Sodium, Blood 137.0 mmol/L (136-145); Total Protein, Blood 7.5 g/dL (6.4-8.2)
[2025-09-18] MEDS ORDERED: Ketorolac Tromethamine 15mg Vial IV ONE (22:40)
[2025-09-19] MEDS ORDERED: NS 1,000 ML IV SCH (00:15)
[2025-09-19 01:40] LABS: Source, Urine Clean Catch
[2025-09-19 01:54] LABS: Bilirubin, Urine Neg (Neg); Glucose Qualitative, Urine Neg (Neg); Ketones, Urine 1+ (Neg); Leukocyte Esterase, Urine Neg (Neg); Protein, Urine 1+ (Neg); Specific Gravity, Urine 1.005 (1.003-1.022); Urobilinogen, Urine NORM (Normal)
[2025-09-19 02:06] LABS: Color, Urine Yellow (P-Yellow)
== END 2025-09-19 02:45 | disposition home or self-care (01) ==
LOC: ER 18:14
PROVIDERS: Student in an Organized Health Care Education/Training Program
DX: R10.A1 Flank pain, right side (principal); R11.2 Nausea with vomiting, unspecified; Z91.030 Bee allergy status; Z88.8 Allergy status to other drugs, medicaments and biological substances
CPT/HCPCS: 74177; 80053; 83690; 85025; 96361; 96374-59; 96375; 99284-25; A9270; J1885; J2405; J7030; Q9967